=== PATIENT | male | born 1970 | race Caucasian/White ===

== ENCOUNTER 2017-11-29 13:07 | Emergency (ER) | payer OTHER ==
[2017-11-29 13:20] VITALS: BP 134/81; PULSE 68; RESP 18; TEMP 98.2; O2SAT 95
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
[2017-11-29] MEDS ORDERED: IBUPROFEN 800 MG TAB PO ONE (13:26)
== END 2017-11-29 14:00 | disposition home or self-care (01) ==
DX: S16.1XXA Strain of muscle, fascia and tendon at neck level, initial encounter (principal); S46.811A Strain of other muscles, fascia and tendons at shoulder and upper arm level, right arm, initial encounter; J45.909 Unspecified asthma, uncomplicated; V49.40XA Driver injured in collision with unspecified motor vehicles in traffic accident, initial encounter; Y92.410 Unspecified street and highway as the place of occurrence of the external cause; Y99.8 Other external cause status; Y93.89 Activity, other specified